=== PATIENT | female | born 1985 | race Caucasian/White ===

== ENCOUNTER 2020-02-12 09:10 | Inpatient (IN) ==
[~2020-02-12 09:10] MED LIST: Lactated Ringers 1000 ml BAG 1,000 ML IV SCH; Sodium Citrate/Citric Acid LIQ 15 ML UDC PO ONE
[2020-02-12] MEDS ORDERED: ceFOXitin 2 GM IVPREMIX (*) 2 GM/50 ML BAG IVPB ONE (10:00)
[2020-02-12] MEDS ORDERED: Ondansetron 4 mg VIAL 2 MG/ML 2 ml VIAL ONE (10:27)
[2020-02-12] MEDS ORDERED: Dexamethasone IV 4 MG/ML VIAL 1 ml VIAL ONE (10:27)
[2020-02-12] MEDS ORDERED: Oxytocin 10 UNITS/ML 1 ML VIAL ONE (10:27)
[2020-02-12] MEDS ORDERED: Morphine PF AMP (0.5MG/ML) 5 MG/10 ML AMP ONE (10:27)
[2020-02-12] MEDS ORDERED: fentaNYL 100 mcg/2 ml 50 MCG/ML VIAL IV PRN (10:32)
[2020-02-12] MEDS ORDERED: diPHENhydraMINE IV 50 MG/ML 1 ml VIAL (BENADRYL) IV PRN ×2 (10:32→11:24)
[2020-02-12] MEDS ORDERED: Prochlorperazine 5 mg/ml 2 ml VIAL (10 mg) IV PRN ×2 (10:32→11:24)
[2020-02-12] MEDS ORDERED: Naloxone 0.4 mg VIAL 0.4 mg/ml 1 ml VIAL IV PRN ×2 (10:32→11:24)
[2020-02-12] MEDS ORDERED: Acetaminophen IV 1 GM/100ML 1,000 MG/100 ML VIAL IVPB ONE (10:32)
[2020-02-12] MEDS ORDERED: EPHEDrine (Pressors) 50 MG/ML VIAL ONE (10:57)
[2020-02-12] MEDS ORDERED: Phenylephrine 40 mcg/mL 10mL (400mcg) SYRINGE ONE (11:05)
[2020-02-12] MEDS ORDERED: Scopolamine PATCH Remove NOTE PATCH OFF PRN (11:24)
[2020-02-12] MEDS ORDERED: Ondansetron 4 mg VIAL 2 MG/ML 2 ml VIAL IV PRN (11:24)
[2020-02-12] MEDS ORDERED: Witch Hazel PAD JAR TOPICAL PRN (11:56)
[2020-02-12] MEDS ORDERED: Dibucaine 1% OINT 28.35 GM TUBE PR PRN (11:56)
[2020-02-12] MEDS ORDERED: Glycerin ADULT 2.4 gm SUPP PR PRN (11:56)
[2020-02-12] MEDS ORDERED: Oxytocin in LR 20 UNITS/1,000 ML BAG IVPB SCH (12:00)
[2020-02-12] MEDS ORDERED: Lactated Ringers 1000 ml BAG 1,000 ML IV SCH (12:00)
[2020-02-13 07:51] LABS: ABS Lymphocytes 2.7 10^3/ul (1.0-4.8); ABS Monocytes 0.9 10^3/ul (0-0.8); Eosinophil % 0.4 %; Hematocrit 23 % (35-47); Hemoglobin 7.6 g/dL (12.0-16.0); Lymphocyte % 21.3 %; Mean Corpuscular HGB Conc 33 g/dL (31-36); Mean Corpuscular Hemoglobin 24 pg (27-31); Mean Corpuscular Volume 74 fL (80-97); Mean Platelet Volume 8.3 fL (7.4-10.4); Platelet Count 177 10^3/uL (150-450); Red Blood Count 3.13 10^6 /uL (3.70-4.87); Red Cell Distribution Width 17 % (10-15); White Blood Count 12.6 10^3/uL (3.5-10.8)
[2020-02-15 07:55] VITALS: BP 125/68
== END 2020-02-15 12:25 | disposition home or self-care (01) | DRG 788 ==
LOC: MCHOB 09:10
PROVIDERS: ADMIT Obstetrics & Gynecology; ATTEND Obstetrics & Gynecology